=== PATIENT | male | born 1940 | race African-American/Black ===

== ENCOUNTER 2022-03-08 16:48 | Inpatient (IN) | payer MEDICARE, OTHER ==
[~2022-03-08] VITALS: Ht 185.4 cm; Wt 131.6 kg
[2022-03-08 18:16] LABS: Basophils # (auto) 0 10 ^3/uL (0-0.2); Basophils % (auto) 0.4 % (0.0-2.0); Eosinophils # (auto) 0.3 10 ^3/uL (0-0.8); Eosinophils % (auto) 4.4 % (0.0-7.0); Hematocrit 26.8 % (41.0-53.0); Hemoglobin 8.7 g/dL (13.5-17.5); Lymphocytes # (auto) 1.3 10 ^3/uL (0.4-5.4); Lymphocytes % (auto) 19.3 % (10.0-50.0); Mean Corpuscular Hemoglobin 29.4 pg (28.0-32.0); Mean Corpuscular Hgb Conc. 32.4 g/dL (32.0-36.0); Mean Corpuscular Volume 90.9 fL (80.0-100.0); Monocytes # (auto) 0.6 10 ^3/uL (0-1.3); Monocytes % (auto) 8.6 % (0.0-12.0); Neutrophils # (auto) 4.6 10 ^3/uL (1.6-8.6); Neutrophils % (auto) 67.3 % (37.0-80.0); Nucleated Red Blood Cells % 0.1 %; Red Blood Cells 2.94 10^6/uL (4.5-5.90); Red Cell Distribution Width 15.2 % (11.8-14.3); White Blood Cell 6.9 10^3/uL (4.4-10.8)
[2022-03-08 18:24] LABS: Albumin 2.5 g/dL (3.4-5.0); Calcium 8.6 mg/dL (8.5-10.1)
[2022-03-08 18:28] LABS: BUN/Creatinine Ratio 23.6; Bilirubin, Total 0.3 mg/dL (0.2-1.0)
[2022-03-08] MEDS ORDERED: SODIUM CHLORIDE 0.9% 1,000 ML IV ONE (19:45)
[2022-03-08] MEDS ORDERED: ACETAMINOPHEN 325 MG TAB PO PRN (22:30)
[2022-03-08] MEDS ORDERED: ALBUMIN 25% 100 ML IV ONE (22:30)
[2022-03-08] MEDS ORDERED: ONDANSETRON HCL 4 MG/2 ML VIAL IV PRN (22:30)
[2022-03-08] MEDS ORDERED: DOCUSATE SOD 100 MG CAP PO PRN (22:30)
[2022-03-08] MEDS ORDERED: DEXTROSE (50%) 50ML SYRG IV PRN (22:30)
[2022-03-08] MEDS ORDERED: MORPHINE SULFATE INJ 2 MG/ml SYRG IV PRN (23:30)
[2022-03-08] MEDS ORDERED: NITROGLYCERIN 0.4 MG SL TAB SL PRN (23:30)
[2022-03-09 00:47] VITALS: BP 113/38
[2022-03-09] MEDS ORDERED: POTA1TAB64 (01:06)
[2022-03-09] MEDS ORDERED: OLME1TAB71 PO (01:06)
[2022-03-09] MEDS ORDERED: ISOS120T4 PO (01:06)
[2022-03-09] MEDS ORDERED: FURO40TA4 PO (01:06)
[2022-03-09] MEDS ORDERED: ATOR40TA52 PO (01:06)
[2022-03-09] MEDS ORDERED: SUCR1TAB PO (01:06)
[2022-03-09] MEDS ORDERED: OXYC-963 (01:06)
[2022-03-09] MEDS ORDERED: ROPI0.254 PO (01:06)
[2022-03-09] MEDS ORDERED: OMEP-260 PO (01:06)
[2022-03-09] MEDS ORDERED: DICL1GEL50 TOP (01:06)
[2022-03-09] MEDS ORDERED: PRAM0.12 (01:06)
[2022-03-09] MEDS ORDERED: GABA300C10 PO (01:06)
[2022-03-09 04:49] VITALS: BP 128/57
[2022-03-09 06:06] LABS: Basophils # (auto) 0.1 10 ^3/uL (0-0.2); Basophils % (auto) 1.7 % (0.0-2.0); Eosinophils # (auto) 0.4 10 ^3/uL (0-0.8); Hematocrit 29.9 % (41.0-53.0); Hemoglobin 9.3 g/dL (13.5-17.5); Lymphocytes # (auto) 1.4 10 ^3/uL (0.4-5.4); Lymphocytes % (auto) 24.6 % (10.0-50.0); Mean Corpuscular Hemoglobin 30.3 pg (28.0-32.0); Mean Corpuscular Hgb Conc. 31.2 g/dL (32.0-36.0); Mean Corpuscular Volume 96.9 fL (80.0-100.0); Monocytes # (auto) 0.5 10 ^3/uL (0-1.3); Neutrophils # (auto) 3.3 10 ^3/uL (1.6-8.6); Neutrophils % (auto) 58.7 % (37.0-80.0); Nucleated Red Blood Cells % 0.2 %; Red Blood Cells 3.08 10^6/uL (4.5-5.90); Red Cell Distribution Width 15.7 % (11.8-14.3); White Blood Cell 5.7 10^3/uL (4.4-10.8)
[2022-03-09] MEDS: SODIUM CHLOR 0.9% PF (SALINE LOCK) 10ML VIAL/SYR IV SCH ×3 (06:14→21:17)
[2022-03-09] MEDS ORDERED: ACCU-CHEK COMFORT CURVE STRIP VI SCH (07:00)
[2022-03-09] MEDS ORDERED: InsuLIN REG 1unit/0.01ml Soln (100units/ml) SC SCH ×2 (07:00→22:00)
[2022-03-09 09:00] VITALS: BP 137/52
[2022-03-09] MEDS ORDERED: FAMOTIDINE (10MG/ML) 2ML VL IV SCH (10:00)
[2022-03-09] MEDS: ZINC SULFATE 220mg CAP or TAB PO SCH (10:36)
[2022-03-09] MEDS: B-COMPLEX W/ C & FOLIC ACID(NEPHROVITE TAB) PO SCH (10:36)
[2022-03-09] MEDS: ASCORBIC ACID 500 MG TAB PO SCH ×2 (10:36→21:17)
[2022-03-09] MEDS: HEPARIN SODIUM (PORCINE) 5000 UNITS/ML 1ML VIAL SC SCH ×2 (10:53→21:18)
[2022-03-09] MEDS: HYDROcodone-ACET 5/325MG TAB PO PRN (11:35)
[2022-03-09 12:32] LABS: Magnesium 2.6 mg/dL (1.6-2.6); Phosphorus 3.7 mg/dL (2.5-4.90)
[2022-03-09 13:00] VITALS: BP 137/53
[2022-03-09 13:11] LABS: Anion Gap 7 (5-15); Blood Urea Nitrogen 60 mg/dL (7-18); Carbon Dioxide 20 mmol/L (21-32); Chloride 116 mmol/L (98-107); Glucose 99 mg/dL (74-106); Potassium 4.6 mmol/L (3.5-5.1); Sodium 143 mmol/L (136-145)
[2022-03-09 13:12] LABS: Albumin 2.7 g/dL (3.4-5.0); Calcium 8.6 mg/dL (8.5-10.1)
[2022-03-09 13:14] LABS: Alanine Aminotransferase 23 U/L (16-61); Alkaline Phosphatase 76 U/L (45-117); Aspartate Aminotransferase 21 U/L (15-37); BUN/Creatinine Ratio 24.9; Bilirubin, Total 0.4 mg/dL (0.2-1.0); GFR African American 33 mL/min; GFR Non-African American 28 mL/min; Total Protein 8.2 g/dL (6.4-8.2)
[2022-03-09 13:53] LABS: Urine Bacteria NONE SEEN /hpf (None Seen); Urine Blood TRACE /uL (Negative); Urine Specific Gravity 1.013 (1.001-1.035); Urine WBC 1 /hpf (0 - 3)
[2022-03-09 14:10] LABS: Protein, Urine 47.7 mg/dL (0.0-11.9)
[2022-03-09] MEDS: GABAPENTIN 300 MG CAP PO SCH ×2 (14:15→21:17)
[2022-03-09 16:33] VITALS: BP 128/48
[2022-03-09] MEDS: NYSTATIN TOPICAL POWDER 15GM TOP SCH (21:17)
[2022-03-09] MEDS: SODIUM CHLORIDE 0.9% 1,000 ML IV SCH (23:09)
[2022-03-10] MEDS: SODIUM CHLORIDE 0.9% 1,000 ML IV SCH ×2 (04:25→19:30)
[2022-03-10 05:00] VITALS: BP 164/71
[2022-03-10] MEDS: SODIUM CHLOR 0.9% PF (SALINE LOCK) 10ML VIAL/SYR IV SCH ×3 (05:32→21:21)
[2022-03-10] MEDS: GABAPENTIN 300 MG CAP PO SCH ×3 (05:33→21:21)
[2022-03-10 06:07] LABS: Calcium 8.7 mg/dL (8.5-10.1); Magnesium 2.5 mg/dL (1.6-2.6); Potassium 4.7 mmol/L (3.5-5.1)
[2022-03-10 06:10] LABS: BUN/Creatinine Ratio 24.8
[2022-03-10 09:00] VITALS: BP 96/61
[2022-03-10] MEDS: ASCORBIC ACID 500 MG TAB PO SCH ×2 (10:07→21:21)
[2022-03-10] MEDS: B-COMPLEX W/ C & FOLIC ACID(NEPHROVITE TAB) PO SCH (10:07)
[2022-03-10] MEDS: PANTOPRAZOLE 40 MG TAB PO SCH (10:07)
[2022-03-10] MEDS: NYSTATIN TOPICAL POWDER 15GM TOP SCH ×2 (10:08→21:21)
[2022-03-10] MEDS: HEPARIN SODIUM (PORCINE) 5000 UNITS/ML 1ML VIAL SC SCH ×2 (11:03→21:22)
[2022-03-10 13:00] VITALS: BP 110/60
[2022-03-10] MEDS: ZINC SULFATE 220mg CAP or TAB PO SCH (13:15)
[2022-03-10] MEDS: CLINDAMYCIN 300MG IV 50 ML IV SCH ×2 (14:25→21:21)
[2022-03-10 17:27] VITALS: BP 121/60
[2022-03-10 22:00] VITALS: BP 127/61
[2022-03-10] MEDS: HYDROcodone-ACET 5/325MG TAB PO PRN (22:31)
[2022-03-11 05:00] VITALS: BP 108/54
[2022-03-11 05:24] LABS: Hematocrit 26.8 % (41.0-53.0); Hemoglobin 8.7 g/dL (13.5-17.5)
[2022-03-11] MEDS: GABAPENTIN 300 MG CAP PO SCH ×3 (05:41→21:56)
[2022-03-11] MEDS: CLINDAMYCIN 300MG IV 50 ML IV SCH (05:41)
[2022-03-11] MEDS: SODIUM CHLOR 0.9% PF (SALINE LOCK) 10ML VIAL/SYR IV SCH ×3 (05:41→21:56)
[2022-03-11 05:43] LABS: BUN/Creatinine Ratio 20.4; Calcium 8.2 mg/dL (8.5-10.1); Potassium 4.6 mmol/L (3.5-5.1)
[2022-03-11 08:00] VITALS: BP 119/92
[2022-03-11 09:00] VITALS: BP 119/92
[2022-03-11] MEDS: B-COMPLEX W/ C & FOLIC ACID(NEPHROVITE TAB) PO SCH (10:06)
[2022-03-11] MEDS: FLORASTOR (S. BOULARDII) 250 MG CAP PO SCH (10:06)
[2022-03-11] MEDS: ZINC SULFATE 220mg CAP or TAB PO SCH (10:06)
[2022-03-11] MEDS: NYSTATIN TOPICAL POWDER 15GM TOP SCH ×2 (10:07→21:57)
[2022-03-11] MEDS: HYDROcodone-ACET 5/325MG TAB PO PRN ×2 (10:07→21:57)
[2022-03-11] MEDS: PANTOPRAZOLE 40 MG TAB PO SCH (10:07)
[2022-03-11] MEDS: ASCORBIC ACID 500 MG TAB PO SCH ×2 (10:07→21:56)
[2022-03-11] MEDS: HEPARIN SODIUM (PORCINE) 5000 UNITS/ML 1ML VIAL SC SCH ×2 (10:08→21:56)
[2022-03-11 13:00] VITALS: BP 112/52
[2022-03-11] MEDS ORDERED: cefTRIAXone 1GM/50ML D5W 50 ML IV ONE (13:45)
[2022-03-11 14:48] LABS: % Iron Saturation 26.1 % (20-55)
[2022-03-11] MEDS: SODIUM CHLORIDE 0.9% 1,000 ML IV SCH (16:56)
[2022-03-11 17:00] VITALS: BP 125/64
[2022-03-11 22:00] VITALS: BP 136/74
[2022-03-12 05:00] VITALS: BP 121/60
[2022-03-12 06:05] LABS: BUN/Creatinine Ratio 16.5; Calcium 8.6 mg/dL (8.5-10.1); Potassium 5.1 mmol/L (3.5-5.1)
[2022-03-12] MEDS: SODIUM CHLOR 0.9% PF (SALINE LOCK) 10ML VIAL/SYR IV SCH (06:08)
[2022-03-12] MEDS: GABAPENTIN 300 MG CAP PO SCH ×3 (06:09→21:53)
[2022-03-12] MEDS: SODIUM CHLORIDE 0.9% 1,000 ML IV SCH ×2 (06:09→10:32)
[2022-03-12 08:00] VITALS: BP 118/55
[2022-03-12] MEDS: HYDROcodone-ACET 5/325MG TAB PO PRN ×2 (08:38→22:03)
[2022-03-12 09:00] VITALS: BP 118/55
[2022-03-12] MEDS: B-COMPLEX W/ C & FOLIC ACID(NEPHROVITE TAB) PO SCH (10:13)
[2022-03-12] MEDS: ZINC SULFATE 220mg CAP or TAB PO SCH (10:13)
[2022-03-12] MEDS: FLORASTOR (S. BOULARDII) 250 MG CAP PO SCH (10:13)
[2022-03-12] MEDS: cefTRIAXone 1GM/50ML D5W 50 ML IV SCH (10:13)
[2022-03-12] MEDS: ASCORBIC ACID 500 MG TAB PO SCH ×2 (10:14→21:54)
[2022-03-12] MEDS: PANTOPRAZOLE 40 MG TAB PO SCH (10:14)
[2022-03-12] MEDS: NYSTATIN TOPICAL POWDER 15GM TOP SCH ×2 (10:14→21:55)
[2022-03-12] MEDS: HEPARIN SODIUM (PORCINE) 5000 UNITS/ML 1ML VIAL SC SCH ×2 (10:25→21:55)
[2022-03-12 13:00] VITALS: BP 120/54
[2022-03-12 16:32] VITALS: BP 124/49
[2022-03-12 22:00] VITALS: BP 129/71
[2022-03-13 05:00] VITALS: BP 130/61
[2022-03-13 05:23] LABS: Hematocrit 28.8 % (41.0-53.0); Hemoglobin 9.4 g/dL (13.5-17.5)
[2022-03-13] MEDS: GABAPENTIN 300 MG CAP PO SCH ×3 (06:51→20:25)
[2022-03-13 09:00] VITALS: BP 123/63
[2022-03-13] MEDS: FLORASTOR (S. BOULARDII) 250 MG CAP PO SCH (09:03)
[2022-03-13] MEDS: ZINC SULFATE 220mg CAP or TAB PO SCH (09:03)
[2022-03-13] MEDS: cefTRIAXone 1GM/50ML D5W 50 ML IV SCH (09:03)
[2022-03-13] MEDS: PANTOPRAZOLE 40 MG TAB PO SCH (09:03)
[2022-03-13] MEDS: ASCORBIC ACID 500 MG TAB PO SCH ×2 (09:03→20:25)
[2022-03-13] MEDS: B-COMPLEX W/ C & FOLIC ACID(NEPHROVITE TAB) PO SCH (09:04)
[2022-03-13] MEDS: NYSTATIN TOPICAL POWDER 15GM TOP SCH ×2 (09:07→20:25)
[2022-03-13] MEDS: HEPARIN SODIUM (PORCINE) 5000 UNITS/ML 1ML VIAL SC SCH ×2 (09:17→20:27)
[2022-03-13 09:27] LABS: Potassium 5.1 mmol/L (3.5-5.1)
[2022-03-13 09:32] LABS: BUN/Creatinine Ratio 16.5; Calcium 8.5 mg/dL (8.5-10.1)
[2022-03-13 13:00] VITALS: BP 137/40
[2022-03-13] MEDS ORDERED: SODIUM ZIRCONIUM CYCL 10 GM PAK PO ONE (13:30)
[2022-03-13] MEDS: SODIUM CHLORIDE 0.9% 1,000 ML IV SCH (15:23)
[2022-03-13 17:00] VITALS: BP 127/38
[2022-03-13] MEDS: HYDROcodone-ACET 5/325MG TAB PO PRN (20:25)
[2022-03-13 22:00] VITALS: BP 124/55
[2022-03-14] VITALS (7 sets, daily range): BP systolic 131–143; BP diastolic 54–70
[2022-03-14] MEDS: SODIUM CHLORIDE 0.9% 1,000 ML IV SCH ×3 (05:25→23:30)
[2022-03-14 05:38] LABS: BUN/Creatinine Ratio 14.8; Calcium 8.4 mg/dL (8.5-10.1)
[2022-03-14] MEDS: GABAPENTIN 300 MG CAP PO SCH ×3 (06:07→21:18)
[2022-03-14 07:53] LABS: INR 1.05 (0.9-1.15); Partial Thromboplastin Time 27.1 sec (23.6-33.0)
[2022-03-14] MEDS: HEPARIN SODIUM (PORCINE) 5000 UNITS/ML 1ML VIAL SC SCH ×2 (10:00→21:21)
[2022-03-14] MEDS ORDERED: IOHEXOL 350 MG/ML 100ML IJ ONE (11:39)
[2022-03-14] MEDS ORDERED: LIDOCAINE 2%HCL (LOCAL ANESTH.) INJ 10ml MDV ONE (11:39)
[2022-03-14] MEDS ORDERED: fentaNYL CITRATE 100 MCG/2 ML VL ONE (11:53)
[2022-03-14] MEDS ORDERED: ANGIOMAX 250 MG VIAL IV ONE ×2 (11:53→12:41)
[2022-03-14] MEDS ORDERED: SODIUM CHL 0.9% 50 ML ONE ×2 (11:54→12:41)
[2022-03-14] MEDS ORDERED: MIDAZOLAM HCL 2MG/2ML 2ml VIAL (1mg/ml) ONE (11:54)
[2022-03-14] MEDS ORDERED: AMOXICILLIN/CLAVUL 875 MG TAB PO ONE (13:30)
[2022-03-14] MEDS: HYDROcodone-ACET 5/325MG TAB PO PRN ×2 (13:38→21:22)
[2022-03-14] MEDS: ASCORBIC ACID 500 MG TAB PO SCH ×2 (16:54→21:18)
[2022-03-14] MEDS: CLINDAMYCIN 600MG IV 50 ML IV SCH ×2 (16:54→21:17)
[2022-03-14] MEDS: B-COMPLEX W/ C & FOLIC ACID(NEPHROVITE TAB) PO SCH (16:54)
[2022-03-14] MEDS: ZINC SULFATE 220mg CAP or TAB PO SCH (16:55)
[2022-03-14] MEDS: PANTOPRAZOLE 40 MG TAB PO SCH (16:55)
[2022-03-14] MEDS: NYSTATIN TOPICAL POWDER 15GM TOP SCH ×2 (16:56→21:18)
[2022-03-14] MEDS: FLORASTOR (S. BOULARDII) 250 MG CAP PO SCH (16:56)
[2022-03-14] MEDS: AMOXICILLIN/CLAVUL 875 MG TAB PO SCH (21:18)
[2022-03-15 05:00] VITALS: BP 122/59
[2022-03-15] MEDS: HYDROcodone-ACET 5/325MG TAB PO PRN (06:05)
[2022-03-15] MEDS: GABAPENTIN 300 MG CAP PO SCH ×2 (06:05→13:45)
[2022-03-15] MEDS: CLINDAMYCIN 600MG IV 50 ML IV SCH ×2 (06:05→14:05)
[2022-03-15] MEDS: SODIUM CHLORIDE 0.9% 1,000 ML IV SCH (06:12)
[2022-03-15 08:02] LABS: Basophils # (auto) 0 10 ^3/uL (0-0.2); Basophils % (auto) 0.5 % (0.0-2.0); Eosinophils # (auto) 0.6 10 ^3/uL (0-0.8); Eosinophils % (auto) 8.4 % (0.0-7.0); Hematocrit 31.5 % (41.0-53.0); Hemoglobin 9.8 g/dL (13.5-17.5); Lymphocytes # (auto) 1.7 10 ^3/uL (0.4-5.4); Lymphocytes % (auto) 25.5 % (10.0-50.0); Mean Corpuscular Hemoglobin 29.1 pg (28.0-32.0); Mean Corpuscular Volume 93.8 fL (80.0-100.0); Monocytes # (auto) 0.8 10 ^3/uL (0-1.3); Monocytes % (auto) 12.3 % (0.0-12.0); Neutrophils # (auto) 3.6 10 ^3/uL (1.6-8.6); Neutrophils % (auto) 53.3 % (37.0-80.0); Nucleated Red Blood Cells % 0.1 %; Red Blood Cells 3.36 10^6/uL (4.5-5.90); Red Cell Distribution Width 15.5 % (11.8-14.3); White Blood Cell 6.7 10^3/uL (4.4-10.8)
[2022-03-15 08:22] LABS: BUN/Creatinine Ratio 13.4; Potassium 5.2 mmol/L (3.5-5.1)
[2022-03-15 08:23] LABS: Calcium 8.3 mg/dL (8.5-10.1); Magnesium 2.4 mg/dL (1.6-2.6)
[2022-03-15 09:00] VITALS: BP 160/81
[2022-03-15] MEDS ORDERED: ATOR20TA PO (11:37)
[2022-03-15] MEDS ORDERED: SACC250C PO (11:37)
[2022-03-15] MEDS ORDERED: CLIN300C8 PO (11:37)
[2022-03-15] MEDS ORDERED: DOCU-94 PO (11:37)
[2022-03-15] MEDS ORDERED: AMOX-277 PO (11:37)
[2022-03-15] MEDS ORDERED: CLOP75TA28 PO (11:44)
[2022-03-15] MEDS ORDERED: SODIUM CHLORIDE 0.9% 1,000 ML IV SCH (11:45)
[2022-03-15] MEDS ORDERED: SODIUM ZIRCONIUM CYCL 10 GM PAK PO ONE (11:45)
[2022-03-15] MEDS ORDERED: CILO100T PO (11:46)
[2022-03-15 13:00] VITALS: BP 120/51
[2022-03-15] MEDS: B-COMPLEX W/ C & FOLIC ACID(NEPHROVITE TAB) PO SCH (13:31)
[2022-03-15] MEDS: FLORASTOR (S. BOULARDII) 250 MG CAP PO SCH (13:32)
[2022-03-15] MEDS: ASCORBIC ACID 500 MG TAB PO SCH (13:32)
[2022-03-15] MEDS: PANTOPRAZOLE 40 MG TAB PO SCH (13:32)
[2022-03-15] MEDS: ZINC SULFATE 220mg CAP or TAB PO SCH (13:33)
[2022-03-15] MEDS: NYSTATIN TOPICAL POWDER 15GM TOP SCH (13:46)
[2022-03-15] MEDS: AMOXICILLIN/CLAVUL 875 MG TAB PO SCH (13:47)
[2022-03-15] MEDS: HEPARIN SODIUM (PORCINE) 5000 UNITS/ML 1ML VIAL SC SCH (14:02)
[2022-03-15 17:02] VITALS: BP 146/63
[2022-03-15 17:08] VITALS: BP 146/63
[2022-03-15] MEDS ORDERED: CILOSTAZOL 100 MG TAB PO SCH (22:00)
[2022-03-16] MEDS ORDERED: CLOPIDOGREL BISULFATE 75 MG TAB PO SCH (10:00)
== END 2022-03-15 20:35 | disposition home or self-care (01) | DRG 252 ==
LOC: EDBD 16:48 → ER 16:48 → OVERFLOW 23:27 → WEST WING 23:55
PROVIDERS: ADMIT Nurse Practitioner Family; ATTEND Internal Medicine
PROC: 05H933Z Insertion of Infusion Device into Right Brachial Vein, Percutaneous Approach (ICD-10-PCS; 2022-03-12)
PROC: B54MZZA Ultrasonography of Right Upper Extremity Veins, Guidance (ICD-10-PCS; 2022-03-12)
PROC: 047N3ZZ Dilation of Left Popliteal Artery, Percutaneous Approach (ICD-10-PCS; principal; 2022-03-14)
PROC: B41GYZZ Fluoroscopy of Left Lower Extremity Arteries using Other Contrast (ICD-10-PCS; 2022-03-14)
PROC: B41FYZZ Fluoroscopy of Right Lower Extremity Arteries using Other Contrast (ICD-10-PCS; 2022-03-14)
DX: E11.51 Type 2 diabetes mellitus with diabetic peripheral angiopathy without gangrene (principal); L89.153 Pressure ulcer of sacral region, stage 3; N17.0 Acute kidney failure with tubular necrosis; I50.42 Chronic combined systolic (congestive) and diastolic (congestive) heart failure; I13.0 Hypertensive heart and chronic kidney disease with heart failure and stage 1 through stage 4 chronic kidney disease, or unspecified chronic kidney disease; E11.69 Type 2 diabetes mellitus with other specified complication; E86.0 Dehydration; D63.1 Anemia in chronic kidney disease; E66.01 Morbid (severe) obesity due to excess calories; K21.9 Gastro-esophageal reflux disease without esophagitis; D63.8 Anemia in other chronic diseases classified elsewhere; E11.42 Type 2 diabetes mellitus with diabetic polyneuropathy; N18.32 Chronic kidney disease, stage 3b; E78.5 Hyperlipidemia, unspecified; Z20.822 Contact with and (suspected) exposure to COVID-19; Z89.511 Acquired absence of right leg below knee; Z74.01 Bed confinement status; Z82.49 Family history of ischemic heart disease and other diseases of the circulatory system; Z68.38 Body mass index [BMI] 38.0-38.9, adult; Z79.84 Long term (current) use of oral hypoglycemic drugs
CPT/HCPCS: 36415; 37228; 71045; 73700; 75716; 76775; 80048; 80053; 80061; 81001; 82306; 82570; 82962; 83036; 83540; 83550; 83605; 83735; 83880; 83970; 84100; 84156; 84300; 84443; 85014; 85018; 85025; 85610; 85730; 86850; 86900; 86901; 87040; 87077; 87186; 87205; 93005; 93306; 93926; 93971; 96361; 96365; 97163; 99152; 99153; C1769; C1887; G0378; J0696; J2001; J2250; J3490; P9047

== ENCOUNTER 2024-03-28 00:07 | Emergency (ER) | payer MEDICARE, OTHER ==
[~2024-03-28] VITALS: Ht 170.2 cm; Wt 140.0 kg
[~2024-03-28 00:07] MED LIST: AMOX875T4 PO; ATOR20TA PO; CLIN1CAP70 PO; CLOP75TA28 PO; DICL1GEL73 TOP; DOCU-94 PO; FURO40TA4 PO; GABA-1250 PO; ISOS120T4 PO; OMEP1CAP70 PO; OXYC-963; PRAM0.12; ROPI5TAB20 PO; SACC250C PO; SUCR1TAB PO
[2024-03-28 00:31] VITALS: BP 144/93; PULSE 65; RESP 16; O2SAT 98
== END 2024-03-28 04:52 | disposition left against medical advice (07) ==
LOC: ER 00:07 → EDBD 00:07 → ER 04:52
DX: R53.1 Weakness (principal); Z53.21 Procedure and treatment not carried out due to patient leaving prior to being seen by health care provider
CPT/HCPCS: 93005

== ENCOUNTER 2024-05-01 12:28 | Inpatient (IN) | payer MEDICARE ==
[~2024-05-01] VITALS: Ht 188 cm; Wt 111.6 kg
[~2024-05-01 12:28] MED LIST changes: +ATOR-507 PO; +CALC1CAP31 PO; +COLC1CAP PO; +FERR1TAB17 PO; +FINE10TA PO; +HYDR-2792 PO; -ISOS120T4 PO; +ISOS120T8 PO; +LATA0.008 EACHEYE; +MEMA28CA PO; +MET25T PO; +MIDO5TAB22 PO; +OLME20TA53 PO; +OXYC325T14 PO; -PRAM0.12; +PRAM0.12 PO; +SEMA4INJ SC
[2024-05-01 12:50] VITALS: PULSE 60; RESP 18; O2SAT 98
[2024-05-01 13:08] LABS: Basophils # (auto) 0.1 10 ^3/uL (0-0.2); Basophils % (auto) 0.4 % (0.0-2.0); Eosinophils # (auto) 0.3 10 ^3/uL (0-0.8); Eosinophils % (auto) 2.2 % (0.0-7.0); Hematocrit 31.6 % (41.0-53.0); Hemoglobin 10.2 g/dL (13.5-17.5); Lymphocytes # (auto) 1.9 10 ^3/uL (0.4-5.4); Lymphocytes % (auto) 14.3 % (10.0-50.0); Mean Corpuscular Hgb Conc. 32.4 g/dL (32.0-36.0); Mean Corpuscular Volume 89.5 fL (80.0-100.0); Monocytes # (auto) 0.9 10 ^3/uL (0-1.3); Monocytes % (auto) 6.8 % (0.0-12.0); Neutrophils # (auto) 10.1 10 ^3/uL (1.6-8.6); Neutrophils % (auto) 76.3 % (37.0-80.0); Nucleated Red Blood Cells % 0.1 %; Platelet Count (auto) 320 10^3/uL (140-450); Red Blood Cells 3.53 10^6/uL (4.5-5.90); Red Cell Distribution Width 17.1 % (11.8-14.3); White Blood Cell 13.3 10^3/uL (4.4-10.8)
[2024-05-01 13:26] LABS: INR 1.18 (0.9-1.15); Partial Thromboplastin Time 24.2 SEC (24.5-34.5); Prothrombin Time 12.4 sec (9.3-11.8)
[2024-05-01 13:30] LABS: Alanine Aminotransferase 20 U/L (7-40); Albumin 3.9 g/dL (3.2-4.8); Alkaline Phosphatase 82 U/L (46-116); Anion Gap 18 (5-15); Aspartate Aminotransferase 29 U/L (13-40); BUN/Creatinine Ratio 19.2 (10.0-20.0); Bilirubin, Total 0.5 mg/dL (0.2-1.0); Calcium 8.7 mg/dL (8.7-10.4); Carbon Dioxide 17 mmol/L (20-30); Chloride 96 mmol/L (98-107); Glucose 122 mg/dL (74-106); Magnesium 2.3 mg/dL (1.6-2.6); Sodium 131 mmol/L (136-145)
[2024-05-01 13:31] LABS: Total Protein 7.8 g/dL (5.7-8.2)
[2024-05-01 14:05] LABS: Blood Urea Nitrogen 133 mg/dL (9-23)
[2024-05-01] MEDS: SODIUM CHLORIDE 0.9% 1,000 ML IV ONE (16:36)
[2024-05-01] MEDS: ONDANSETRON HCL 4 MG/2 ML VIAL IV ONE (16:42)
[2024-05-01] MEDS: MORPHINE SULFATE 4 MG/ML SYR/VIAL IV ONE (16:43)
[2024-05-01] MEDS: cefTRIAXone 1GM/50ML D5W 50 ML IV ONE (16:55)
[2024-05-01] MEDS ORDERED: ACETAMINOPHEN 325 MG TAB PO PRN (17:00)
[2024-05-01] MEDS ORDERED: ONDANSETRON HCL 4 MG/2 ML VIAL IV PRN (17:00)
[2024-05-01] MEDS: PIPERACILLIN-TAZOB 3.375GM 100 ML IV SCH (17:43)
[2024-05-01 18:58] VITALS: BP 126/56; PULSE 62; PULSE 93; RESP 16; TEMP 97.4; O2SAT 98
[2024-05-01 18:59] LABS: Erythrocyte Sedimentation Rate 90 mm/hr (0-20)
[2024-05-01] MEDS: SODIUM CHLORIDE 0.9% 500 ML IV ONE (19:45)
[2024-05-01 20:00] VITALS: PULSE 60
[2024-05-01 21:00] VITALS: BP 123/55; PULSE 60; RESP 18; TEMP 97.4; O2SAT 100
[2024-05-01] MEDS: SODIUM CHLOR 0.9% PF (SALINE LOCK) 10ML VIAL/SYR IV SCH (23:54)
[2024-05-02] VITALS (8 sets, daily range): BP systolic 105–136; BP diastolic 42–67; PULSE 60–98; RESP 17–20; TEMP 97.5–98.6; O2SAT 90–99
[2024-05-02] MEDS: HYDROcodone-ACET 5/325MG TAB PO PRN (00:44)
[2024-05-02] MEDS: SODIUM CHL 0.9% 1000 ML BAG XX ONE (09:29)
[2024-05-02] MEDS ORDERED: VANCOMYCIN PER PHARMACY 0 MG IV SCH (18:15)
[2024-05-02] MEDS: PANTOPRAZOLE 40 MG/10 ML VIAL INJ IV SCH (20:10)
[2024-05-02] MEDS: VANCOMYCIN 1GM/200ML 200 ML IV ONE (20:10)
[2024-05-02] MEDS: HYDROmorphone HCL 2 MG/ML VL/or syr IV ONE (21:00)
[2024-05-03] VITALS (9 sets, daily range): BP systolic 111–137; BP diastolic 66–112; PULSE 60–76; RESP 16–18; TEMP 97.9–98.7; O2SAT 97–100
[2024-05-03] MEDS: ACCU-CHEK COMFORT CURVE STRIP VI SCH ×2 (06:37→12:00)
[2024-05-03] MEDS ORDERED: PRAM0.373 PO (06:48)
[2024-05-03] MEDS ORDERED: COLCPOW2 PO (06:48)
[2024-05-03] MEDS ORDERED: ASPI-543 PO (06:53)
[2024-05-03] MEDS: SODIUM CHL 0.9% 1000 ML BAG XX ONE (08:04)
[2024-05-03] MEDS ORDERED: DEXTROSE (50%) 50ML SYRG IV PRN (10:30)
[2024-05-03] MEDS: InsuLIN REG 1unit/0.01ml Soln (100units/ml) SC SCH ×2 (12:13→22:15)
[2024-05-03 12:32] LABS: Eosinophils # (auto) 0.2 10 ^3/uL (0-0.8); Eosinophils % (auto) 2.4 % (0.0-7.0); Monocytes # (auto) 1.1 10 ^3/uL (0-1.3); Nucleated Red Blood Cells % 0.1 %; White Blood Cell 9.9 10^3/uL (4.4-10.8)
[2024-05-03 12:35] LABS: Basophils # (auto) 0 10 ^3/uL (0-0.2); Basophils % (auto) 0.4 % (0.0-2.0); Hematocrit 24.7 % (41.0-53.0); Lymphocytes # (auto) 1.7 10 ^3/uL (0.4-5.4); Lymphocytes % (auto) 17.7 % (10.0-50.0); Mean Corpuscular Hemoglobin 29.9 pg (28.0-32.0); Mean Corpuscular Hgb Conc. 32.5 g/dL (32.0-36.0); Monocytes % (auto) 10.7 % (0.0-12.0); Neutrophils # (auto) 6.8 10 ^3/uL (1.6-8.6); Neutrophils % (auto) 68.8 % (37.0-80.0); Platelet Count (auto) 311 10^3/uL (140-450); Red Blood Cells 2.69 10^6/uL (4.5-5.90); Red Cell Distribution Width 17.5 % (11.8-14.3)
[2024-05-03 12:48] LABS: Alanine Aminotransferase 12 U/L (7-40); Albumin 3.5 g/dL (3.2-4.8); Alkaline Phosphatase 59 U/L (46-116); Anion Gap 13 (5-15); Aspartate Aminotransferase 35 U/L (13-40); BUN/Creatinine Ratio 14.4 (10.0-20.0); Bilirubin, Total 0.4 mg/dL (0.2-1.0); Blood Urea Nitrogen 79 mg/dL (9-23); Calcium 8.6 mg/dL (8.7-10.4); Carbon Dioxide 26 mmol/L (20-30); Chloride 100 mmol/L (98-107); Glucose 141 mg/dL (74-106); Potassium 3.9 mmol/L (3.5-5.1); Sodium 139 mmol/L (136-145); Total Protein 6.8 g/dL (5.7-8.2)
[2024-05-03] MEDS ORDERED: GABAPENTIN 300 MG CAP PO SCH (14:00)
[2024-05-03] MEDS: GABAPENTIN 300 MG CAP PO SCH (16:00)
[2024-05-03] MEDS: MUPIROCIN 2% OINT 15gm or 22gm FOR MRSA NARES EACHNOSTRI SCH (21:20)
[2024-05-04] VITALS (8 sets, daily range): BP systolic 86–140; BP diastolic 20–72; PULSE 60–80; RESP 18–22; TEMP 97.5–98.7; O2SAT 86–100
[2024-05-04 07:00] LABS: Basophils # (auto) 0.1 10 ^3/uL (0-0.2); Eosinophils # (auto) 0.4 10 ^3/uL (0-0.8); Lymphocytes # (auto) 1.4 10 ^3/uL (0.4-5.4); Platelet Count (auto) 339 10^3/uL (140-450)
[2024-05-04] MEDS ORDERED: SODIUM CHL 0.9% 1000 ML BAG XX ONE (07:00)
[2024-05-04 07:03] LABS: Basophils % (auto) 0.6 % (0.0-2.0); Eosinophils % (auto) 4.2 % (0.0-7.0); Hematocrit 24.3 % (41.0-53.0); Hemoglobin 7.8 g/dL (13.5-17.5); Lymphocytes % (auto) 14.5 % (10.0-50.0); Mean Corpuscular Hemoglobin 29.5 pg (28.0-32.0); Mean Corpuscular Hgb Conc. 32.3 g/dL (32.0-36.0); Mean Corpuscular Volume 91.4 fL (80.0-100.0); Monocytes # (auto) 0.8 10 ^3/uL (0-1.3); Monocytes % (auto) 8.7 % (0.0-12.0); Neutrophils # (auto) 6.9 10 ^3/uL (1.6-8.6); Nucleated Red Blood Cells % 0.1 %; Red Blood Cells 2.66 10^6/uL (4.5-5.90); Red Cell Distribution Width 18.2 % (11.8-14.3); White Blood Cell 9.6 10^3/uL (4.4-10.8)
[2024-05-04 07:43] LABS: Alanine Aminotransferase 16 U/L (7-40); Albumin 3.4 g/dL (3.2-4.8); Alkaline Phosphatase 56 U/L (46-116); Anion Gap 16 (5-15); Aspartate Aminotransferase 48 U/L (13-40); BUN/Creatinine Ratio 13.3 (10.0-20.0); Calcium 8.5 mg/dL (8.7-10.4); Carbon Dioxide 21 mmol/L (20-30); Chloride 99 mmol/L (98-107); Glucose 107 mg/dL (74-106); Sodium 136 mmol/L (136-145)
[2024-05-04 07:44] LABS: Bilirubin, Total 0.4 mg/dL (0.2-1.0); Phosphorus 8.5 mg/dL (2.4-5.1)
[2024-05-04 07:48] LABS: Blood Urea Nitrogen 89 mg/dL (9-23)
[2024-05-04] MEDS: EPOETIN ALFA-EPBX 10,000 UNIT/1ML VIAL SC ONE (22:35)
[2024-05-05] VITALS (9 sets, daily range): BP systolic 100–155; BP diastolic 33–108; PULSE 60–82; RESP 15–22; TEMP 97.6–98.7; O2SAT 90–99
[2024-05-05 07:21] LABS: Eosinophils # (auto) 0.1 10 ^3/uL (0-0.8); Monocytes # (auto) 1.1 10 ^3/uL (0-1.3); Neutrophils # (auto) 5.7 10 ^3/uL (1.6-8.6); Nucleated Red Blood Cells % 0.5 %; Red Blood Cells 2.62 10^6/uL (4.5-5.90); Red Cell Distribution Width 18.5 % (11.8-14.3)
[2024-05-05 07:24] LABS: Basophils # (auto) 0.1 10 ^3/uL (0-0.2); Basophils % (auto) 0.9 % (0.0-2.0); Eosinophils % (auto) 1.1 % (0.0-7.0); Hemoglobin 7.7 g/dL (13.5-17.5); Lymphocytes # (auto) 0.9 10 ^3/uL (0.4-5.4); Lymphocytes % (auto) 11.8 % (10.0-50.0); Mean Corpuscular Hemoglobin 29.5 pg (28.0-32.0); Mean Corpuscular Hgb Conc. 32.2 g/dL (32.0-36.0); Mean Corpuscular Volume 91.6 fL (80.0-100.0); Monocytes % (auto) 13.5 % (0.0-12.0); Neutrophils % (auto) 72.7 % (37.0-80.0); Platelet Count (auto) 325 10^3/uL (140-450); White Blood Cell 7.8 10^3/uL (4.4-10.8)
[2024-05-05 07:42] LABS: Alanine Aminotransferase 18 U/L (7-40); Alkaline Phosphatase 58 U/L (46-116); Anion Gap 13 (5-15); BUN/Creatinine Ratio 11.8 (10.0-20.0); Calcium 8.6 mg/dL (8.7-10.4); Carbon Dioxide 27 mmol/L (20-30); Chloride 99 mmol/L (98-107); Glucose 107 mg/dL (74-106); Sodium 139 mmol/L (136-145)
[2024-05-05 07:43] LABS: Albumin 3.4 g/dL (3.2-4.8); Aspartate Aminotransferase 46 U/L (13-40)
[2024-05-05 07:44] LABS: Bilirubin, Total 0.5 mg/dL (0.2-1.0); Blood Urea Nitrogen 63 mg/dL (9-23); Total Protein 6.5 g/dL (5.7-8.2)
[2024-05-05] MEDS ORDERED: fentaNYL CITRATE 100 MCG/2 ML VL ONE (10:59)
[2024-05-05] MEDS ORDERED: MIDAZOLAM HCL 2MG/2ML 2ml VIAL (1mg/ml) ONE (10:59)
[2024-05-05] MEDS ORDERED: BUPIVACAINE 0.5% P/F INJ 10 ML VIAL ONE (12:36)
[2024-05-05] MEDS: HYDROmorphone HCL 2 MG/ML VL/or syr IV PRN (17:48)
[2024-05-06] VITALS (13 sets, daily range): BP systolic 96–142; BP diastolic 35–79; PULSE 59–80; RESP 17–20; TEMP 97.4–98.7; O2SAT 96–100
[2024-05-06] MEDS: HYDROcodone-ACET 10/325MG TAB PO PRN (06:23)
[2024-05-06] MEDS ORDERED: SODIUM CHL 0.9% 1000 ML BAG XX ONE (07:00)
[2024-05-06 07:36] LABS: Basophils # (auto) 0.1 10 ^3/uL (0-0.2); Basophils % (auto) 0.7 % (0.0-2.0); Mean Corpuscular Volume 90.4 fL (80.0-100.0); Monocytes # (auto) 1.1 10 ^3/uL (0-1.3); Neutrophils # (auto) 5.3 10 ^3/uL (1.6-8.6); Platelet Count (auto) 330 10^3/uL (140-450); White Blood Cell 9.1 10^3/uL (4.4-10.8)
[2024-05-06 07:38] LABS: Eosinophils # (auto) 0.4 10 ^3/uL (0-0.8); Eosinophils % (auto) 4.9 % (0.0-7.0); Hematocrit 20.8 % (41.0-53.0); Lymphocytes # (auto) 2.1 10 ^3/uL (0.4-5.4); Lymphocytes % (auto) 23.6 % (10.0-50.0); Mean Corpuscular Hemoglobin 29.8 pg (28.0-32.0); Mean Corpuscular Hgb Conc. 32.9 g/dL (32.0-36.0); Monocytes % (auto) 12.3 % (0.0-12.0); Neutrophils % (auto) 58.5 % (37.0-80.0); Nucleated Red Blood Cells % 0.3 %; Red Cell Distribution Width 18.1 % (11.8-14.3)
[2024-05-06 07:44] LABS: Alanine Aminotransferase 18 U/L (7-40); Albumin 3.2 g/dL (3.2-4.8); Alkaline Phosphatase 54 U/L (46-116); Anion Gap 12 (5-15); Aspartate Aminotransferase 38 U/L (13-40); BUN/Creatinine Ratio 11.4 (10.0-20.0); Bilirubin, Total 0.4 mg/dL (0.2-1.0); Blood Urea Nitrogen 78 mg/dL (9-23); Calcium 8.6 mg/dL (8.7-10.4); Carbon Dioxide 26 mmol/L (20-30); Chloride 98 mmol/L (98-107); Glucose 104 mg/dL (74-106); Hemoglobin 6.8 g/dL (13.5-17.5); Potassium 4.1 mmol/L (3.5-5.1); Sodium 136 mmol/L (136-145); Total Protein 6.3 g/dL (5.7-8.2)
[2024-05-06 16:12] LABS: Basophils # (auto) 0 10 ^3/uL (0-0.2); Basophils % (auto) 0.4 % (0.0-2.0); Eosinophils # (auto) 0.6 10 ^3/uL (0-0.8); Eosinophils % (auto) 4.9 % (0.0-7.0); Hematocrit 25.8 % (41.0-53.0); Hemoglobin 8.1 g/dL (13.5-17.5); Lymphocytes # (auto) 1.4 10 ^3/uL (0.4-5.4); Lymphocytes % (auto) 12.5 % (10.0-50.0); Mean Corpuscular Hemoglobin 28.5 pg (28.0-32.0); Mean Corpuscular Hgb Conc. 31.3 g/dL (32.0-36.0); Neutrophils # (auto) 8.4 10 ^3/uL (1.6-8.6); Neutrophils % (auto) 73.2 % (37.0-80.0); Nucleated Red Blood Cells % 0.2 %; Platelet Count (auto) 309 10^3/uL (140-450); Red Blood Cells 2.83 10^6/uL (4.5-5.90); Red Cell Distribution Width 17.4 % (11.8-14.3); White Blood Cell 11.5 10^3/uL (4.4-10.8)
[2024-05-07] VITALS (8 sets, daily range): BP systolic 94–138; BP diastolic 38–66; PULSE 59–63; RESP 16–20; TEMP 98–99.7; O2SAT 98–100
[2024-05-07 04:54] LABS: Basophils # (auto) 0 10 ^3/uL (0-0.2); Basophils % (auto) 0.6 % (0.0-2.0); Eosinophils # (auto) 0.6 10 ^3/uL (0-0.8); Eosinophils % (auto) 7.1 % (0.0-7.0); Hematocrit 23.9 % (41.0-53.0); Hemoglobin 7.9 g/dL (13.5-17.5); Lymphocytes # (auto) 1.9 10 ^3/uL (0.4-5.4); Lymphocytes % (auto) 21.9 % (10.0-50.0); Mean Corpuscular Hemoglobin 29.6 pg (28.0-32.0); Mean Corpuscular Volume 89.8 fL (80.0-100.0); Monocytes % (auto) 11.5 % (0.0-12.0); Neutrophils # (auto) 5.2 10 ^3/uL (1.6-8.6); Neutrophils % (auto) 58.9 % (37.0-80.0); Nucleated Red Blood Cells % 0.4 %; Platelet Count (auto) 308 10^3/uL (140-450); Red Blood Cells 2.67 10^6/uL (4.5-5.90); Red Cell Distribution Width 17.6 % (11.8-14.3); White Blood Cell 8.9 10^3/uL (4.4-10.8)
[2024-05-07 05:12] LABS: Alanine Aminotransferase 16 U/L (7-40); Albumin 3.5 g/dL (3.2-4.8); Alkaline Phosphatase 52 U/L (46-116); Anion Gap 8 (5-15); Aspartate Aminotransferase 32 U/L (13-40); BUN/Creatinine Ratio 8.5 (10.0-20.0); Calcium 8.4 mg/dL (8.7-10.4); Carbon Dioxide 28 mmol/L (20-30); Chloride 100 mmol/L (98-107); Glucose 121 mg/dL (74-106); Potassium 3.5 mmol/L (3.5-5.1); Sodium 136 mmol/L (136-145)
[2024-05-07 05:13] LABS: Bilirubin, Total 0.8 mg/dL (0.2-1.0); Total Protein 6.8 g/dL (5.7-8.2)
[2024-05-07 05:24] LABS: Blood Urea Nitrogen 47 mg/dL (9-23)
[2024-05-07 12:17] LABS: Hematocrit 23.2 % (41.0-53.0); Hemoglobin 7.6 g/dL (13.5-17.5); Lymphocytes # (auto) 1.5 10 ^3/uL (0.4-5.4); Mean Corpuscular Hgb Conc. 32.7 g/dL (32.0-36.0); Monocytes # (auto) 0.8 10 ^3/uL (0-1.3); Red Blood Cells 2.57 10^6/uL (4.5-5.90)
[2024-05-07 12:18] LABS: Basophils # (auto) 0 10 ^3/uL (0-0.2); Basophils % (auto) 0.5 % (0.0-2.0); Eosinophils # (auto) 0.5 10 ^3/uL (0-0.8); Eosinophils % (auto) 5.5 % (0.0-7.0); Lymphocytes % (auto) 15.9 % (10.0-50.0); Mean Corpuscular Hemoglobin 29.5 pg (28.0-32.0); Mean Corpuscular Volume 90.2 fL (80.0-100.0); Monocytes % (auto) 8.6 % (0.0-12.0); Neutrophils # (auto) 6.6 10 ^3/uL (1.6-8.6); Neutrophils % (auto) 69.5 % (37.0-80.0); Nucleated Red Blood Cells % 0.3 %; Platelet Count (auto) 298 10^3/uL (140-450); Red Cell Distribution Width 17.5 % (11.8-14.3); White Blood Cell 9.5 10^3/uL (4.4-10.8)
[2024-05-07 12:40] LABS: Alanine Aminotransferase 20 U/L (7-40); Albumin 3.3 g/dL (3.2-4.8); Alkaline Phosphatase 48 U/L (46-116); Anion Gap 13 (5-15); Aspartate Aminotransferase 30 U/L (13-40); BUN/Creatinine Ratio 9.5 (10.0-20.0); Calcium 7.7 mg/dL (8.7-10.4); Carbon Dioxide 25 mmol/L (20-30); Chloride 100 mmol/L (98-107); Glucose 141 mg/dL (74-106); Potassium 3.4 mmol/L (3.5-5.1); Sodium 138 mmol/L (136-145)
[2024-05-07 12:41] LABS: Bilirubin, Total 0.6 mg/dL (0.2-1.0); Total Protein 6.3 g/dL (5.7-8.2)
[2024-05-07 12:51] LABS: Blood Urea Nitrogen 58 mg/dL (9-23)
[2024-05-08] VITALS (7 sets, daily range): BP systolic 94–134; BP diastolic 35–62; PULSE 53–64; RESP 16–18; TEMP 97.5–98.1; O2SAT 97–100
[2024-05-08 06:11] LABS: Eosinophils # (auto) 0.6 10 ^3/uL (0-0.8); Hematocrit 22.6 % (41.0-53.0); Hemoglobin 7.5 g/dL (13.5-17.5); Lymphocytes # (auto) 2.4 10 ^3/uL (0.4-5.4); Lymphocytes % (auto) 24.9 % (10.0-50.0); White Blood Cell 9.6 10^3/uL (4.4-10.8)
[2024-05-08 06:13] LABS: Basophils # (auto) 0.1 10 ^3/uL (0-0.2); Basophils % (auto) 0.7 % (0.0-2.0); Eosinophils % (auto) 6.6 % (0.0-7.0); Mean Corpuscular Hemoglobin 29.8 pg (28.0-32.0); Mean Corpuscular Hgb Conc. 33.1 g/dL (32.0-36.0); Monocytes # (auto) 0.7 10 ^3/uL (0-1.3); Monocytes % (auto) 7.7 % (0.0-12.0); Neutrophils # (auto) 5.8 10 ^3/uL (1.6-8.6); Neutrophils % (auto) 60.1 % (37.0-80.0); Nucleated Red Blood Cells % 0.2 %; Platelet Count (auto) 313 10^3/uL (140-450); Red Blood Cells 2.51 10^6/uL (4.5-5.90); Red Cell Distribution Width 17.1 % (11.8-14.3)
[2024-05-08 06:15] LABS: Alanine Aminotransferase 13 U/L (7-40); Albumin 3.4 g/dL (3.2-4.8); Alkaline Phosphatase 50 U/L (46-116); Anion Gap 10 (5-15); BUN/Creatinine Ratio 8.3 (10.0-20.0); Blood Urea Nitrogen 58 mg/dL (9-23); Calcium 8.2 mg/dL (8.7-10.4); Carbon Dioxide 26 mmol/L (20-30); Chloride 98 mmol/L (98-107); Glucose 101 mg/dL (74-106); Potassium 3.4 mmol/L (3.5-5.1); Sodium 134 mmol/L (136-145)
[2024-05-08 06:16] LABS: Aspartate Aminotransferase 26 U/L (13-40); Bilirubin, Total 0.4 mg/dL (0.2-1.0); Total Protein 6.6 g/dL (5.7-8.2)
[2024-05-08 11:13] LABS: COVID19 ANTIGEN SOFIA FIA POSITIVE (NEGATIVE)
[2024-05-08] MEDS: ONDANSETRON HCL 4 MG/2 ML VIAL IV ONE (12:07)
[2024-05-08] MEDS: SODIUM CHL 0.9% 1000 ML BAG XX ONE (14:30)
[2024-05-09] VITALS (8 sets, daily range): BP systolic 92–121; BP diastolic 39–59; PULSE 56–61; RESP 16–18; TEMP 97.7–98.6; O2SAT 97–100
[2024-05-09 07:23] LABS: Alanine Aminotransferase 18 U/L (7-40); Albumin 3.7 g/dL (3.2-4.8); Alkaline Phosphatase 50 U/L (46-116); Anion Gap 12 (5-15); Aspartate Aminotransferase 22 U/L (13-40); BUN/Creatinine Ratio 7.3 (10.0-20.0); Calcium 8.3 mg/dL (8.7-10.4); Carbon Dioxide 26 mmol/L (20-30); Chloride 97 mmol/L (98-107); Glucose 95 mg/dL (74-106); Potassium 3.5 mmol/L (3.5-5.1); Sodium 135 mmol/L (136-145)
[2024-05-09 07:24] LABS: Bilirubin, Total 0.4 mg/dL (0.2-1.0); Blood Urea Nitrogen 44 mg/dL (9-23); Total Protein 7.2 g/dL (5.7-8.2)
[2024-05-09 07:27] LABS: Hemoglobin 7.9 g/dL (13.5-17.5); Neutrophils # (auto) 5.4 10 ^3/uL (1.6-8.6); Nucleated Red Blood Cells % 0.1 %
[2024-05-09 07:28] LABS: Basophils # (auto) 0.1 10 ^3/uL (0-0.2); Basophils % (auto) 0.8 % (0.0-2.0); Eosinophils # (auto) 0.5 10 ^3/uL (0-0.8); Eosinophils % (auto) 5.8 % (0.0-7.0); Hematocrit 24.1 % (41.0-53.0); Lymphocytes # (auto) 2.2 10 ^3/uL (0.4-5.4); Mean Corpuscular Hemoglobin 29.4 pg (28.0-32.0); Mean Corpuscular Hgb Conc. 32.7 g/dL (32.0-36.0); Mean Corpuscular Volume 89.9 fL (80.0-100.0); Monocytes # (auto) 0.7 10 ^3/uL (0-1.3); Neutrophils % (auto) 60.4 % (37.0-80.0); Platelet Count (auto) 299 10^3/uL (140-450); Red Blood Cells 2.68 10^6/uL (4.5-5.90); Red Cell Distribution Width 17.8 % (11.8-14.3); White Blood Cell 8.9 10^3/uL (4.4-10.8)
[2024-05-09] MEDS: ZINC SULFATE 220mg CAP or TAB PO SCH (10:11)
[2024-05-09] MEDS: ASCORBIC ACID 500 MG TAB PO SCH (10:11)
[2024-05-09] MEDS: CHOLECALCIFEROL (VITD3) 1,000UNIT=25mCg TAB PO SCH (10:11)
[2024-05-10] VITALS (8 sets, daily range): BP systolic 91–111; BP diastolic 46–67; PULSE 60–90; RESP 14–20; TEMP 36.6; O2SAT 96–100
[2024-05-10] MEDS: VANCOMYCIN 500 MG in D5W 5% 100 ML IV ONE ×2 (10:00→15:48)
[2024-05-10 12:52] LABS: INR 1.05 (0.9-1.15); Partial Thromboplastin Time 25.4 SEC (24.5-34.5); Prothrombin Time 11.1 sec (9.3-11.8)
[2024-05-10] MEDS: LIDOCAINE 1% (LOCAL ANESTH.) PF 5ml SDV ID ONE (14:49)
[2024-05-10] MEDS ORDERED: SODIUM CHLOR 0.9% PF (SALINE LOCK) 10ML VIAL/SYR IV SCH (22:00)
== END 2024-05-10 19:26 | DRG 853 ==
LOC: EDBD 12:28 → ER 12:28 → EDUNIT# 12:28 → TELE 16:58 → TELE-CENTR 18:50
PROVIDERS: ADMIT Internal Medicine; ATTEND Family Medicine
PROC: 5A1D70Z Performance of Urinary Filtration, Intermittent, Less than 6 Hours Per Day (ICD-10-PCS; 2024-05-02)
PROC: 5A1D70Z Performance of Urinary Filtration, Intermittent, Less than 6 Hours Per Day (ICD-10-PCS; 2024-05-04)
PROC: 0Y6U0Z0 Detachment at Left 3rd Toe, Complete, Open Approach (ICD-10-PCS; principal; 2024-05-05 10:54)
PROC: 5A1D70Z Performance of Urinary Filtration, Intermittent, Less than 6 Hours Per Day (ICD-10-PCS; 2024-05-06)
PROC: 30233N1 Transfusion of Nonautologous Red Blood Cells into Peripheral Vein, Percutaneous Approach (ICD-10-PCS; 2024-05-06)
PROC: 5A1D70Z Performance of Urinary Filtration, Intermittent, Less than 6 Hours Per Day (ICD-10-PCS; 2024-05-08)
PROC: 02HV33Z Insertion of Infusion Device into Superior Vena Cava, Percutaneous Approach (ICD-10-PCS; 2024-05-10)
PROC: B548ZZA Ultrasonography of Superior Vena Cava, Guidance (ICD-10-PCS; 2024-05-10)
DX: A41.89 Other specified sepsis (principal); I21.4 Non-ST elevation (NSTEMI) myocardial infarction; N18.6 End stage renal disease; U07.1 COVID-19; M86.8X7 Other osteomyelitis, ankle and foot; I13.2 Hypertensive heart and chronic kidney disease with heart failure and with stage 5 chronic kidney disease, or end stage renal disease; E87.20 Acidosis, unspecified; K92.2 Gastrointestinal hemorrhage, unspecified; N25.81 Secondary hyperparathyroidism of renal origin; E11.52 Type 2 diabetes mellitus with diabetic peripheral angiopathy with gangrene; L02.612 Cutaneous abscess of left foot; E11.621 Type 2 diabetes mellitus with foot ulcer; L97.529 Non-pressure chronic ulcer of other part of left foot with unspecified severity; L89.151 Pressure ulcer of sacral region, stage 1; I50.9 Heart failure, unspecified; D63.1 Anemia in chronic kidney disease; E66.01 Morbid (severe) obesity due to excess calories; Z60.8 Other problems related to social environment; E87.5 Hyperkalemia; E11.22 Type 2 diabetes mellitus with diabetic chronic kidney disease; E78.00 Pure hypercholesterolemia, unspecified; E83.39 Other disorders of phosphorus metabolism; E11.69 Type 2 diabetes mellitus with other specified complication; Z82.49 Family history of ischemic heart disease and other diseases of the circulatory system; Z89.511 Acquired absence of right leg below knee; Z79.4 Long term (current) use of insulin; Z95.0 Presence of cardiac pacemaker; Z83.3 Family history of diabetes mellitus; Z99.2 Dependence on renal dialysis; Z95.5 Presence of coronary angioplasty implant and graft; Z68.33 Body mass index [BMI] 33.0-33.9, adult
CPT/HCPCS: 36415; 71045; 73630; 73700; 80053; 80202; 82270; 82962; 83036; 83735; 83880; 84100; 84443; 84484; 85025; 85379; 85610; 85652; 85730; 86141; 86850; 86900; 86901; 86920; 87040; 87070; 87075; 87077; 87081; 87186; 87205; 87340; 87426; 90935; 93005; 93306; 93926; 96365; 96375; 97110; 97163; 97530; 99291; G0378; J1642; J1815; J2250; J2405; J2470; J2543; J3490; J7060

== ENCOUNTER 2024-11-25 23:32 | Emergency (ER) | payer MEDICARE, OTHER ==
[~2024-11-25] VITALS: Ht 162.6 cm; Wt 117.0 kg
[~2024-11-25 23:32] MED LIST changes: -AMOX875T4 PO; +ASPI-543 PO; -ATOR20TA PO; -CLIN1CAP70 PO; -DOCU-94 PO; -ISOS120T8 PO; -OMEP1CAP70 PO; -OXYC-963; -SACC250C PO; -SUCR1TAB PO
--- NOTE | 2024-11-26 00:15 | ED.PDOC ---
Musculoskeletal HPI Comments 84-year-old male came to the emergency room via EMS for right leg pain. Patient has history of hypertension, diabetes and bilateral BKA. States for the past 5 days he has been having intermittent episodes of right upper leg pain that worsened progressively today. Percocet taken for the pain offered little relief. Denies any fever, any history of blood clots or any recent trauma. Chief Complaint: Lower Extremity Time Seen by MD: 00:13 Primary Care Provider: TARYN Almonte Notes: Nuclear Officer Notes Allergies: Coded Allergies: NO KNOWN ALLERGIES (Unverified , 03/08/22) Home Meds Active Scripts Clopidogrel Bisulfate (Plavix) 75 Mg Tab, 1 TAB PO DAILY, #30 TAB Prov:LYNN AZAR MD 03/15/22 Reported Medications Olmesartan Medoxomil (Benicar) 20 Mg Tab, 1 TAB PO DAILY for 90 Days, #90 5 Refills 05/05/24 Calcifediol (Rayaldee) 30 Mcg Cap, 1 CAP PO HS for 30 Days, #30 05/05/24 Ferric Citrate (Auryxia) 210 Mg Tab, 2 TAB PO TID for 30 Days, #180 05/05/24 Finerenone (Kerendia) 10 Mg Tab, 1 TAB PO DAILY for 30 Days, #30 05/05/24 Latanoprost (LATANOPROST) 0.005 % Chelle, 1 DROP EACHEYE QPM 05/05/24 Midodrine HCl (Midodrine Hydrochloride) 5 Mg Tab, 1 TAB PO TID for 30 Days, #90 05/05/24 Metoprolol Tartrate (Lopressor) 25 Mg Tb, 1 TAB PO Q12HR for 90 Days, #180 05/05/24 Semaglutide (Ozempic) 4 Mg/3 Ml Inj, 1 MG SC QWEEKLY for 28 Days, #3 05/05/24 Atorvastatin Calcium (Lipitor) 40 Mg Tab, 1 TAB PO DAILY for 90 Days, #90 05/05/24 Oxycodone W/ Acetaminophen (Apap/Oxycodone) 1 Tab Tab, 1 TAB PO Q6HR PRN for 30 Days, #120 [10/325 MG] 05/05/24 Colchicine (Colchicine) 0.6 Mg Cap, 1 TAB PO EOD for 90 Days, #45 05/05/24 Hydralazine Hcl (Hydralazine Hcl) 10 Mg Tab, 10 MG PO Q6HR PRN for SBP>160 for 90 Days, #360 05/03/24 Memantine Hydrochloride (NAMENDA XR) 28 Mg Cap, 1 TAB PO DAILY for 90 Days, #90 05/03/24 Aspirin (Aspir-Low) 81 Mg Tab, 81 MG PO DAILY for 30 Days, MG 05/03/24 Diclofenac Sodium (Topical) (Diclofenac Sodium) 1 % Gel, 2 GM TOP TID PRN for PAIN SCALE 1 THRU 6 for 14 Days, #200 03/09/22 Pramipexole Dihydrochloride (Mirapex) 0.125 Mg Tab, 1 TAB PO TID for 270 Days, #90 03/09/22 Ropinirole Hydrochloride (Ropinirole Hcl) 0.25 Mg Tab, 1 TAB PO TID for 90 Days, #270 03/09/22 Furosemide (Furosemide) 40 Mg Tab, 1 TAB PO BID for 90 Days, #180 03/09/22 Gabapentin (Gabapentin) 300 Mg Cap, 1 CAP PO TID 03/09/22 Information Source: Patient, Emergency Med Personnel Mode of Arrival: EMS Location: Right Extremity Location: Leg, Thigh Timing: Days (5) Severity: Moderate Able to Move Extremity: Yes Bear Weight: Limited Pain: Moderate Hand Dominance: Right Mechanism: Spontaneous Circumstances: Spontaneous Onset of Symptoms: Spontaneous Symptoms: Pain Associated signs and symptoms: Leg pain (right) Review of Systems REVIEW OF SYSTEMS: No fever, no chills, or fatigue HEENT: No sore throat, no earache, no congestion, no neck pain. Cardiac: No chest pain. No palpitations. Lungs: No shortness of breath, no cough. GI: No nausea, no vomiting, no diarrhea, no constipation, no abdominal pain : No dysuria, frequency, or urgency. No hematuria. Musculoskeletal: No joint pain , no joint swelling, no extremity edema (+) right leg pain Skin: No rash, no itching. Neuro: No headache, no dizziness, no weakness Vital Signs Vital Signs Date Time Temp Pulse Resp B/P (MAP) Pulse Ox O2 Delivery O2 Flow Rate FiO2 11/26/24 00:15 Room Air* 0 21 11/25/24 23:35 98.2 91 16 147/90 (109) 97 Physical Exam General: Awake, alert and oriented. No acute distress. Skin: Skin in warm, dry and intact. Appropriate color for ethnicity. Nailbeds pink with no cyanosis. HEENT: The head is normocephalic and atraumatic. Conjunctivae are clear without exudates or hemorrhage. Sclera is non-icteric. EOM are intact. No signs of nystagmus. Eyelids are normal in appearance without swelling or lesions. Oral mucosa is pink and moist Neck: The neck is supple with normal range of motion. No JVD. Cardiac: Heart rate and rhythm are normal. No murmurs, gallops, or rubs are auscultated. Respiratory: No signs of respiratory distress. Lung sounds are clear in all lobes bilaterally without rales, ronchi, or wheezes. Abdominal: Abdomen is soft, non-tender without distention. Bowel sounds are present and normoactive in all four quadrants. Extremities: Upper and lower extremities are atraumatic in appearance without deformity or edema. Neurological: The patient is awake, alert and oriented to person, place, and time with normal speech. Speech is clear. There is no facial asymmetry. Psychiatric: Appropriate mood and affect. Good judgement and insight. No visual or auditory hallucinations. Past Medical History PAST MEDICAL HISTORY: AFIB, CHF, DM, ESRD, High Lipids, HTN Past Medical History (Other): Chronic back pain Surgical History: BKA (Bilateral), Pacemaker Family History Family History: Reviewed,noncontributory to illness, Family hx of HTN Social History Smoker: Non-Smoker Alcohol: Denies ETOH Use Drugs: Denies Drug Use Lives In: Home Was a procedure done? Was a procedure done?: No Differential Diagnosis EXT Differential Diagnosis: Cellulitis, Deep Vein Thrombosis, Compartment Syndrome, Fracture, Neurovascular injury, Other (DVT, ischemic limb) X-Ray, Labs, Meds, VS Vital Signs Date Time Temp Pulse Resp B/P (MAP) Pulse Ox O2 Delivery O2 Flow Rate FiO2 11/26/24 00:15 Room Air* 0 21 11/25/24 23:35 98.2 91 16 147/90 (109) 97 Current Medications Medications (Trade) Dose Ordered Sig/[place] Route Start Time Stop Time Status Last Admin Gabapentin (Neurontin Capsule) 300 mg ONCE ONCE PO 11/26/24 00:15 11/26/24 00:16 DC 11/26/24 01:02 Acetaminophen (Tylenol Tablet) 650 mg ONCE ONCE PO 11/26/24 00:15 11/26/24 00:16 DC 11/26/24 01:02 Time of 1ST Reevaluation: 00:08 Reevaluation 1ST: Unchanged Patient Education/Counseling: Diagnosis, Treatment Family Education/Counseling: No Family Present Departure 1 Departure Time of Disposition: 02:19 Impression: Primary Impression: Peripheral arterial disease Additional Impression: Right leg pain Disposition: 01 HOME / SELF CARE / HOMELESS Condition: Stable Additional Instructions: ED DISCHARGE INSTRUCTIONS Instructions: Please read all instructions provided in this packet carefully. Although you have been discharged from the Emergency Department, this does not mean that you have a "clean bill of health". No definitive diagnosis for your symptoms has been made today. It is possible that you are in the process of developing a serious illness. This is why you must return to the ED without fail if any new or worsening symptoms (especially if your symptoms include worsening leg pain, worsening leg swelling or color change, chest pain, trouble breathing, abdominal pain, fever, headache, confusion, trouble seeing, or trouble walking) It is also very important that you see a primary care doctor within the next 3-5 days to follow up. If you are unable to get an appointment, return to the ED for re-evaluation. The ultrasound of your lower extremity shows that you may have some narrowing of the arteries in your right leg. Follow up with your primary care provider for further evaluation and treatment. A copy of the ultrasound results is provided below: Right Lower Extremity Arterial Duplex Clinical History: Right BKA pain, swelling, rule out ischemia Comparison: US LT LOW EXT ART DUPLEX on DOS: 05/03/24, LLEAD on DOS: 03/12/22, US DUPLEX LOW EXT ART LT on DOS: 03/12/22 Technique: Duplex Doppler evaluation including color Doppler and spectral/pulsed waveform analysis of the lower extremity arteries was performed. Findings: RIGHT: Peak systolic velocities are as follows: [employer]IST 113 cm/s Deep femoral 93 cm/s SFA proximal 110 cm/s SFA distal 49 cm/s All waveforms are monophasic with diastolic flow. IMPRESSION: 1. No acute occlusion identified. Monophasic waveforms throughout the visualized right lower extremity arteries may reflect underlying stenosis. REFERENCE VALUES, [facility]) vascular Imaging Lab Criteria: Peak systolic velocity ranges (in cm/sec) are as follows: <150 cm/s - <20 % stenosis 150-200 cm/s - 20-49% stenosis 200-300 cm/s - 50-75% stenosis >300 cm/s -> 75% stenosis Comments 84-year-old male with pain of right lower extremity status post distant BKA. Suspected peripheral arterial disease, no acute occlusion, DVT or fracture identified on imaging. Patient reports pain is somewhat improved with treatment in the emergency department. Patient well-appearing, nontoxic. He is felt stable for discharge home and Advised prompt follow-up with PCP, return to the ED with any new, worsening or concerning symptoms. Extensive evaluation was performed in attempt to identify or rule out: (See differential diagnosis section) The following tests were ordered, and results were reviewed by me: (See pernell gnostic results section) The following test were independently interpreted by me: N/A I reviewed and agreed with the following test results read by other providers: N/A I reviewed the following notes from the pt's past medical encounters: (None available at this time) Additional information was gathered from interviewing the following independent historians: EMS personnel Decision regarding hospitalization or escalation of hospital level of care: Risks and benefits of admission for further treatment of patient's condition was considered however due to patient's stable condition patient will be discharged to follow up closely or return to care for worsening of condition or inability to follow up. Critical Care Note Critical Care Time?: No Stability Stability form required: No I personally scribed for LIZBET ALEJANDRE MD ([email or web address]) on 11/26/24 at 00:15. Electronically submitted by Tejas Quinteros ([email or web address]). LIZBET ALEJANDRE MD Nov 26, 2024 00:15
--- NOTE | 2024-11-26 00:39 | DVH ---
Right lower extremity venous duplex Clinical History: Right lower extremity pain, swelling Comparison: LT LOWER DVT on DOS: 03/12/22, LLDVT on DOS: 03/12/22 Technique: Duplex Doppler evaluation of the deep venous system of the right lower extremity from the common femo ral vein to the popliteal vein including color Doppler and spectral/pulsed waveform analysis was perf ormed. Findings: The common femoral vein demonstrates appropriate compressibility and waveform variability. There is compressibility/patency of the great saphenous vein at the proximal thigh. The femoral vein demonstrates appropriate compressibility and waveform variability. The deep femoral vein demonstrates appropriate compressibility and waveform variability. The popliteal vein demonstrates appropriate compressibility and waveform variability. There is normal compressibility at the tibioperoneal trunk. Impression: 1. No right femoropopliteal venous thrombosis.
[2024-11-26] MEDS: ACETAMINOPHEN 325 MG TAB PO ONE (01:02)
[2024-11-26] MEDS: GABAPENTIN 300 MG CAP PO ONE (01:02)
--- NOTE | 2024-11-26 01:19 | DVH ---
Right Lower Extremity Arterial Duplex Clinical History: Right BKA pain, swelling, rule out ischemia Comparison: US LT LOW EXT ART DUPLEX on DOS: 05/03/24, LLEAD on DOS: 03/12/22, US DUPLEX LOW EXT ART LT on DOS: 03/12/22 Technique: Duplex Doppler evaluation including color Doppler and spectral/pulsed waveform analysis of the lower extremity arteries was performed. Findings: RIGHT: Peak systolic velocities are as follows: [employer] ASSOCIATE 113 cm/s Deep femoral 93 cm/s SFA proximal 110 cm/s SFA distal 49 cm/s All waveforms are monophasic with diastolic flow. IMPRESSION: 1. No acute occlusion identified. Monophasic waveforms throughout the visualized right lower extremit y arteries may reflect underlying stenosis. REFERENCE VALUES, [facility]) vascular Imaging Lab Criteria: Peak systolic velocity ranges (in cm/sec) are as follows: <150 cm/s - <20 % stenosis 150-200 cm/s - 20-49% stenosis 200-300 cm/s - 50-75% stenosis >300 cm/s -> 75% stenosis
--- NOTE | 2024-11-26 01:34 | DVH ---
CLINICAL INDICATION: Right lower extremity pain, swelling TECHNIQUE: 4 views of the right femur. Comparison: None FINDINGS/IMPRESSION: There is no evidence of acute fracture or dislocation. No significant osseous destructive changes. Postoperative changes from below-knee amputation.
[2024-11-26 14:15] VITALS: BP 120/42; PULSE 70; RESP 14; TEMP 98.9; O2SAT 95
== END 2024-11-26 06:53 | disposition home or self-care (01) ==
LOC: EDBD 23:32 → ER 23:32
DX: E11.51 Type 2 diabetes mellitus with diabetic peripheral angiopathy without gangrene (principal); E11.22 Type 2 diabetes mellitus with diabetic chronic kidney disease; G89.29 Other chronic pain; I13.2 Hypertensive heart and chronic kidney disease with heart failure and with stage 5 chronic kidney disease, or end stage renal disease; I50.9 Heart failure, unspecified; N18.6 End stage renal disease; I82.401 Acute embolism and thrombosis of unspecified deep veins of right lower extremity; Z79.02 Long term (current) use of antithrombotics/antiplatelets; Z79.82 Long term (current) use of aspirin; Z79.85 Long-term (current) use of injectable non-insulin antidiabetic drugs; Z79.899 Other long term (current) drug therapy; Z89.511 Acquired absence of right leg below knee; Z89.512 Acquired absence of left leg below knee; Z95.0 Presence of cardiac pacemaker
CPT/HCPCS: 93926; 93971